=== PATIENT | female | born 1980 | race Two or more races ===

== ENCOUNTER 2019-06-09 03:53 | Emergency (ER) | payer OTHER ==
[~2019-06-09] VITALS: Ht 177.8 cm; Wt 70.3 kg
[~2019-06-09 03:53] MED LIST: PREDNISOLONE5 MG PO; ZANTAC150 MG PO
[2019-06-09] MEDS ORDERED: METOTREXATO (04:11)
== END 2019-06-09 12:27 | disposition home or self-care (01) ==
LOC: ER 03:53
DX: N39.0 Urinary tract infection, site not specified (principal); R10.32 Left lower quadrant pain

== ENCOUNTER 2020-09-03 12:10 | Emergency (ER) | payer OTHER ==
[~2020-09-03] VITALS: Ht 177.8 cm; Wt 83.9 kg
[~2020-09-03 12:10] MED LIST changes: +METOTREXATO
[2020-09-03] MEDS ORDERED: AMOX1TAB5 PO (15:44)
[2020-09-03] MEDS ORDERED: FLUCONAZOLE150 MG PO (15:44)
[2020-09-03] MEDS ORDERED: MUPIROCIN1 G1 TOP (15:44)
[2020-09-03] MEDS ORDERED: CLARITIN10 M1 PO (15:45)
== END 2020-09-03 15:46 | disposition home or self-care (01) ==
LOC: ER 12:10
DX: T78.49XA Other allergy, initial encounter (principal); R21 Rash and other nonspecific skin eruption